=== PATIENT | male | born 1990 ===

== ENCOUNTER 2021-01-03 19:08 | Emergency (ER) | payer SELFPAY ==
[2021-01-03 22:43] VITALS: BP 132/83
[2021-01-03] MEDS ORDERED: TETANUS,DIPH,PERTUSS(ACELL) VACCINE 0.5 ML SYRINGE IM ONE (23:04)
[2021-01-03] MEDS ORDERED: IBUPROFEN 800 MG TAB PO STA (23:04)
--- NOTE | 2021-01-03 23:07 | Emergency Department Report ---
ED General Adult HPI - General Chief complaint: Wound/Laceration Stated complaint: HIT IN HEAD Time Seen by Provider: 01/03/21 21:52 Source: patient Mode of arrival: Ambulatory Limitations: No Limitations - History of Present Illness Initial comments: 30-year-old male patient presents with complaints of laceration to left posterior scalp. Patient states a piece of siding at work hit him in the head. He denies any loss of consciousness, headache, vision changes, nausea/vomiting, dizziness, confusion, numbness/tingling/weakness in his limbs, difficulty with speech/ambulation, or neck pain. Patient is unsure of his last tetanus vaccination. Allergies include aspirin. -: Sudden - Related Data Previous Rx's Medication Instructions Recorded Last Taken Type Ibuprofen [Motrin 800 MG tab] 800 mg PO Q8HR PRN #20 tablet 01/03/21 Unknown Rx Mupirocin [Bactroban 2% OINT] 1 applic TP TID 7 Days #1 tube 01/03/21 Unknown Rx cephALEXin [Keflex] 500 mg PO Q12HR 5 Days #10 cap 01/03/21 Unknown Rx Allergies Allergy/AdvReac Type Severity Reaction Status Date / Time No Known Allergies Allergy Unverified 01/03/21 21:44 ED Review of Systems ROS: Stated complaint: HIT IN HEAD Other details as noted in HPI Constitutional: denies: malaise Gastrointestinal: denies: nausea Skin: denies: change in color Neurological: denies: headache, weakness, numbness, paresthesias, abnormal gait ED Past Medical Hx - Past Medical History Previous Medical History?: No - Surgical History Past Surgical History?: No - Medications Home Medications: Home Medications Medication Instructions Recorded Confirmed Last Taken Type Ibuprofen [Motrin 800 MG tab] 800 mg PO Q8HR PRN #20 tablet 01/03/21 Unknown Rx Mupirocin [Bactroban 2% OINT] 1 applic TP TID 7 Days #1 tube 01/03/21 Unknown Rx cephALEXin [Keflex] 500 mg PO Q12HR 5 Days #10 cap 01/03/21 Unknown Rx ED Physical Exam - General Limitations: No Limitations General appearance: alert, in no apparent distress - Head Head exam: Present: normocephalic - Expanded Head Exam Expanded Head exam: Present: laceration (6 cm laceration noted to posterior scalp with minimal active bleeding; no obvious foreign bodies) - Eye Eye exam: Present: normal appearance. Absent: scleral icterus - Neck Neck exam: Present: normal inspection. Absent: tenderness - Respiratory Respiratory exam: Absent: respiratory distress - Cardiovascular Cardiovascular Exam: Present: regular rate - Neurological Exam Neurological exam: Present: alert, oriented X3, CN II-XII intact, normal gait - Expanded Neurological Exam Expanded Best Eye Response (Kevin): (4) open spontaneously Best Motor Response (Kevin): (6) obeys commands Best Verbal Response ([place]): (5) oriented Kevin Total: 15 - Psychiatric Psychiatric exam: Present: normal affect, normal mood - Skin Skin exam: Present: warm, dry, normal color. Absent: rash ED Course Vital Signs 01/03/21 21:48 Temperature 97.4 F L Pulse Rate 68 Respiratory 16 Rate Blood Pressure 132/83 O2 Sat by Pulse 98 Oximetry - Laceration /Wound Repair Head Wound Location: head Wound Length (cm): 6 Wound's Depth, Shape: linear Wound Explored: no foreign body removed Irrigated w/ Saline (ccs): 100 Betadine Prep?: Yes Anesthesia: 1% Lidocaine Volume Anesthetic (ccs): 8 Number of Sutures: 9 (Deon) Sterile Dressing Applied?: No Progress: Minimal bleeding occurred. Patient tolerated procedure well without any immediate complications ED Medical Decision Making - Medical Decision Making 30-year-old male patient presents with complaints of laceration to left posterior scalp. Patient states a piece of siding at work hit him in the head. He denies any loss of consciousness, headache, vision changes, nausea/vomiting, dizziness, confusion, numbness/tingling/weakness in his limbs, difficulty with speech/ambulation, or neck pain. Patient is unsure of his last tetanus vaccination. Allergies include aspirin. Laceration repair with deon. Patient tolerated procedure well without any immediate complications. Tetanus vaccine updated. Discussed wound care and signs symptoms that should prompt immediate return to the emergency department in detail patient verbalizes understanding. He is to return to the ED in 10 days for staple removal Critical care attestation.: If time is entered above; I have spent that time in minutes in the direct care of this critically ill patient, excluding procedure time. ED Disposition Clinical Impression: Scalp laceration Qualifiers: Encounter type: initial encounter Qualified Code(s): S01.01XA - Laceration without foreign body of scalp, initial encounter Disposition: HOME / SELF CARE / HOMELESS Is pt being admited?: No Condition: Stable Instructions: Laceration Care, Adult, Sutures, [place], or Adhesive Wound Closure, [id number] Additional Instructions: Please return to the emergency department in 10 days for staple removal 01/14/2021 Prescriptions: Mupirocin [Bactroban 2% OINT] 1 applic TP TID 7 Days #1 tube cephALEXin [Keflex] 500 mg PO Q12HR 5 Days #10 cap Ibuprofen [Motrin 800 MG tab] 800 mg PO Q8HR PRN #20 tablet PRN Reason: pain Referrals: [facility] [Provider Group] - 3-5 Days Forms: Work/School Release Form(ED)
== END 2021-01-03 23:30 | disposition home or self-care (01) ==
LOC: ED 19:08
DX: S01.01XA Laceration without foreign body of scalp, initial encounter (principal); W22.8XXA Striking against or struck by other objects, initial encounter; Y93.89 Activity, other specified; Y92.89 Other specified places as the place of occurrence of the external cause; Y99.8 Other external cause status
CPT/HCPCS: 90471; 90715; 99282